=== PATIENT | female | born 1945 | race Hispanic/Latino ===

== ENCOUNTER 2022-12-25 06:29 | Day surgery (SDC) | payer OTHER ==
[2022-12-23 16:01] LABS: Absolute Lymphocytes (CBC) 2.3 K/uL (0.7-4.9); Hematocrit 39.5 % (36.0-45.0); Lymphocytes % 30.3 % (15.3-44.8); MCV 91.8 fL (80-100); MPV 9.4 fL (7.6-11.3); Platelets 200 thou/uL (152-406)
--- NOTE | 2022-12-23 16:18 | RAD REPORT ---
EXAM DESCRIPTION: Miguel Thakkar (2 Views)12/23/2022 3:28 pm CLINICAL HISTORY: Preop for gallbladder surgery COMPARISON: None FINDINGS: The lungs appear clear of acute infiltrate. The heart is normal size IMPRESSION: No acute abnormalities displayed
[2022-12-23 16:20] LABS: Albumin 3.5 g/dL (3.4-5.0); Bilirubin Direct 0.2 mg/dL (0-0.2); Bilirubin Indirect, Calculated 0.5 mg/dL (0.2-0.8); Bilirubin Total 0.7 mg/dL (0.2-1.0); Potassium 3.6 mEq/L (3.5-5.1)
--- NOTE | 2022-12-24 11:57 | EKG ---
Test Date: 2022-12-23 Test Time: 15:07:35 [place]: CHARLINE MEASUREMENT RESULTS: Intervals: Rate: 78 NC: 174 QRSD: 78 QT: 382 QTc: 435 [place]: P: 64 NC: 174 QRS: 61 T: 63 INTERPRETIVE STATEMENTS: Normal sinus rhythm Normal ECG Compared to ECG 12/27/2004 15:40:00 T-wave abnormality no longer present Electronically Signed On 12-24-22 11:54:12 CDT by Luther Rivera
[2022-12-25] MEDS ORDERED: Ringers Lactate 1,000 ML IV ONE (07:01)
[2022-12-25] MEDS: CEFOXITIN SODIUM 1 GM/VIAL ONE ×2 (07:07→07:35)
[2022-12-25] MEDS ORDERED: FENTANYL CITR 100 MCG/2 ML ONE (07:35)
[2022-12-25] MEDS ORDERED: propofoL 200 MG/20 ML VIAL IV ONE (07:35)
[2022-12-25] MEDS ORDERED: ROCURONIUM 50 MG/5 ML VIAL IV ONE (07:36)
[2022-12-25] MEDS ORDERED: MIDAZOLAM HCL 2 MG/2 ML INJ ONE (07:36)
[2022-12-25] MEDS ORDERED: ONDANSETRON 4 MG/2 ML VIAL ONE (07:37)
[2022-12-25] MEDS ORDERED: LIDOCAINE 2% MPF 5 ML VIAL ONE (07:37)
[2022-12-25] MEDS: Ringers Lactate 1,000 ML IV ONE ×4 (08:11→08:39)
[2022-12-25] MEDS ORDERED: KETOROLAC 30 MG/ML INJ ONE (08:15)
[2022-12-25] MEDS ORDERED: GLYCOPYRROLATE 0.2 MG/ML SYR ONE ×2 (08:17→08:46)
[2022-12-25] MEDS ORDERED: EPHEDRINE SULF 50 MG/ML VIAL ONE (08:18)
[2022-12-25] MEDS ORDERED: NEOSTIGMINE 1 MG/ML -10 ML VIAL ONE (08:46)
--- NOTE | 2022-12-25 09:00 | P.BOP ---
Preoperative diagnosis: Acute cholecystitis, Symptomatic cholelithiasis, RUQ abd pain Postoperative diagnosis: same, umbilical hernia Primary procedure: Laparoscopic cholecystectomy Secondary procedure: Open repair of umbilical hernia Estimated blood loss: <10cc Specimen: gb Findings: as above Anesthesia: General Complications: None Transferred to: Recovery Room Condition: Good
--- NOTE | 2022-12-25 19:16 | OP ---
Date of Procedure: 12/25/2022 Surgeon: Deangelo Mora MD Preoperative Diagnoses: Acute cholecystitis, symptomatic cholelithiasis, right upper quadrant abdomi nal pain. Postoperative Diagnoses: Acute cholecystitis, symptomatic cholelithiasis, right upper quadrant abdom inal pain plus umbilical hernia. Procedure: Laparoscopic cholecystectomy, open repair of umbilical hernia. Estimated Blood Loss: Less than 10 cc. Specimen: Gallbladder. Anesthesia: General plus local. Complications: None. Findings: The patient has distended acute cholecystitis. Also has some intraabdominal adhesions of the gallbladder and also have an umbilical hernia with omentum trapped on it. Indication: This is a case of a 77-year-old patient who comes to us with above diagnosis, fully expl ained the benefits, alternatives, and risks of laparoscopic, possible open cholecystectomy, which inc lude, but not limited to, infection, bleeding, damage to adjacent structures, anesthesia complication , cholelithiasis, bile leak, pancreatitis, PR, and even . Patient understands this may not reli brennen any symptoms. She might need more than one surgical intervention. She understood and signed a c onsent. Description Of Procedure: Patient was brought to the operating room, placed in supine position. Ane sthesia was done without complication. Abdominal area was prepped and draped in the usual sterile fa shion. Marcaine 0.5% was injected for local anesthetic followed by sharp incision of the skin in the infraumbilical region. Incision was carried down to fascia, which was opened under direct vision. Peritoneum was encountered, opened under direct vision. Vicryl #1 placed inside the fascia. Napoleon trocar was carefully introduced. Pneumoperitoneum was obtained. I placed three more trocars, 5 mm e ach one of them, one in epigastric area, two in the right upper quadrant using the same technique whi ch consisted of local anesthetic, sharp incision of the skin and introduction of the trocar under dir ect vision. We took this opportunity also when we went in, we saw an umbilical hernia. So we cleane d the fascial edges and removed some incarcerated omentum that patient had in that area, but it was e asily reduced with no bleeding. The Napoleon trocar was placed through it and Vicryl #1 was placed in that area. We then put a grasper in the fundus of the gallbladder and then removed the adhesions slo wly with the help of Endo Maris. We had to remember this patient had a gastric surgery in the past. After that, we proceeded to put another grasper in the infundibulum, another grasper in the fundus of the gallbladder and retracted the gallbladder in the inferolateral fashion exposing the triangle o f Calot, obtaining critical view. Cystic duct and cystic artery were clearly isolated, freed circumf erentially and a connection between those and the gallbladder were clearly identified. I proceeded t o ligate those by using at least 3 clips proximal, 1 clip distal, ligation in the middle. Same was d one with the cystic artery. No bile leak. No bleeding. The gallbladder was removed from the liver using Bovie cauterizer and removed from abdominal cavity using EndoCatch through umbilical incision. The area was inspected once again. No bile leak. No bleeding. At that moment, I proceeded to faith ve the trocars under direct vision. Deflated the pneumoperitoneum. Closed the fascia with #1 Vicryl , irrigated subcutaneous tissue, closed that with 3-0 chromic and the skin with kelly. Sponge coun ts and instrument counts correct. Patient tolerated the procedure well. Also mention that on the y out, we closed the umbilical hernia with #1 Vicryl. [place] placed on the incision. Patient aleksandar ated the procedure well. Patient was sent to Recovery in stable condition. ADORE/LISANDRA Voice ID: [id number] Report ID: [id number]
--- NOTE | 2022-12-25 19:16 | DS ---
Diagnoses: Acute cholecystitis, symptomatic cholelithiasis, right upper quadrant abdominal pain, umb ilical hernia. Procedure: Laparoscopic cholecystectomy and open repair of umbilical hernia. Disposition: Home. Activity: As tolerated. No heavy lifting. Plan: Follow up in my office in 1 week. Call for appointment [phone]. Keep area dry for 48 hours, then may shower. SHIKHA Voice ID: [id number] Report ID: [id number]
[2022-12-26 14:11] VITALS: BP 116/54; TEMP 96.9; O2SAT 98
== END 2022-12-25 10:25 | disposition home or self-care (01) ==
LOC: OR 06:29
PROVIDERS: ATTEND Surgery
PROC: 0FT44ZZ Resection of Gallbladder, Percutaneous Endoscopic Approach (ICD-10-PCS; principal; 2022-12-25 07:30)
DX: K80.10 Calculus of gallbladder with chronic cholecystitis without obstruction (principal); K42.9 Umbilical hernia without obstruction or gangrene
CPT/HCPCS: 93005; 85025; 80048; 36415; 80076; 88302; 88304; 83690; 71046; 47562; J2704; J2710; J2001; J2250; J3010; J0694; J2405; J7120 ×2